=== PATIENT | female | born 2000 | race Caucasian/White ===

== ENCOUNTER 2021-10-19 15:39 | Inpatient (IN) ==
[2021-10-19 16:20] LABS: Basophils # (auto) 0.03 K/uL (0-0.2); Basophils % (auto) 0.3 %; Eosinophils # (auto) 0.05 K/uL (0-0.5); Eosinophils % (auto) 0.5 %; Hematocrit (blood only) 40.4 % (37-47); Hemoglobin 14.2 g/dL (12.0-16.0); Immature Granulocytes # (auto) 0.02 K/uL (0.00-0.02); Immature Granulocytes % (auto) 0.2 %; Lymphocytes # (auto) 2.47 K/uL (1.2-3.4); Lymphocytes % (auto) 24.7 %; Mean Corpuscular Hemoglobin 31.5 pg (25-34); Mean Corpuscular Hgb Conc 35.1 g/dL (32-36); Mean Corpuscular Volume 89.6 fL (80-100); Mean Platelet Volume 9.3 fL (7.4-10.4); Monocytes # (auto) 0.72 K/uL (0.11-0.59); Monocytes % (auto) 7.2 %; Neutrophils # (auto) 6.71 K/uL (1.4-6.5); Neutrophils % (auto) 67.1 %; Platelet Count 305 K/uL (130-400); RDW Coefficient of Variation 12.6 % (11.5-14.5); RDW Standard Deviation 40.9 fL (36.4-46.3); Red Blood Count 4.51 M/uL (4.2-5.4)
[2021-10-19 16:34] LABS: Appearance Urine Clear (Clear); Bacteria Urine Automated Negative (Negative); Bilirubin Urine Negative (Negative); Blood Urine Negative (Negative); Color Urine Yellow; Epithelial Cell Urine Auto >30 /lpf (0-5); Glucose Urine UA Negative (Negative); Ketones Urine Trace (Negative); Leukocyte Esterase Urine 1+ (Negative); Nitrite Urine Negative (Negative); Protein Urine Negative (Negative); RBC Urine Automated 0-4 /hpf (0-4); Specific Gravity Urine 1.017 (1.000-1.030); Urobilinogen Urine Negative (Negative); pH Urine 6.5 (4.5-7.5)
[2021-10-19 16:46] LABS: Acetaminophen < 3 ug/ml (10-30); Albumin Globulin Ratio 1.4 (0.9-2); Albumin Level 4.7 gm/dl (3.4-5.0); BUN Creatinine Ratio 15.1 (10-20); Bilirubin,Total 0.9 mg/dl (0.2-1.0); Calcium 9.5 mg/dl (8.5-10.1); Est GFR (African American) 137.4 ml/min; Est GFR (Non-African American) 118.6 ml/min; Globulin 3.3 gm/dl (2.5-4.0); Potassium 3.6 mmol/L (3.5-5.1); Salicylate < 3.0 mg/dl (3.0-30)
[2021-10-19 16:54] LABS: Pregnancy Test, Serum Negative (Negative)
[2021-10-19 17:09] LABS: Amphetamines+Metham, Urine Neg (Neg); Barbiturates, Urine Neg (Neg); Benzodiazepine, Urine Neg (Neg); Cocaine, Urine Neg (Neg); MDMA (Ecstacy), Urine Neg (Neg); Methadone, Urine Neg (Neg); Opiate, Urine Neg (Neg); Phencyclidine, Urine Neg (Neg)
--- NOTE | 2021-10-19 19:01 | Emergency Department Note ---
History of Present Illness General Chief complaint: Mental Health Evaluation Stated complaint: MHE, SUICIDAL THOUGHTS Time Seen by Provider: 10/19/21 16:25 History of Present Illness Provider complaint: Mental health evaluation Onset (ago): week(s) 1 21-year-old female presents emergency department for mental health evaluation. Patient reports that for the last week she has been feeling increasingly suicidal. Patient reports she has been under a lot of stress due to school and her classes not going well, family stress, and also that she has been in isolation for the last week due to recent COVID infection. Patient states she has been having thoughts of wanting to jump off buildings and has been googling which buildings with a tallest on campus. Patient reports history of anxiety and depression as well as history of suicidal ideation. Home Medications Medication Instructions Recorded Confirmed Type sertraline 100 mg tablet (Zoloft) 200 mg PO DAILY 10/19/21 10/19/21 History Allergies Allergy/AdvReac Type Severity Reaction Status Date / Time No Known Allergies Allergy Unverified 10/19/21 21:45 Past Med/Surg History Medical History Anxiety Depression with suicidal ideation No pertinent family history Surgical History No pertinent past surgical history Social History Smoking Status: Never smoker Preferred Language: Tajik Communication Ability: Effective Window Tinter Required: No Beliefs That Will Affect Care: None Feels Safe at Home: Yes Assistive Devices: None Review of Systems A total of 10 systems reviewed and were otherwise negative Physical Exam Vital Signs Vital Signs - 24 hr 10/19/21 15:43 10/19/21 17:00 10/19/21 18:32 Temperature 36.4 C L Temperature Source Temporal Artery Scan Pulse Rate 108 H Pulse Rate [Radial] 95 H 100 H Respiratory Rate 18 19 20 Blood Pressure 157/110 H Blood Pressure [Right Arm] 118/86 117/81 Blood Pressure Mean 125 Blood Pressure Mean [Right Arm] 96 93 Pulse Oximetry 97 98 98 Oxygen Delivery Method Room Air Room Air Sepsis Recent Fever Within 48 Hours No Sepsis New/Unexplained Change in Mental Status No Sepsis Action Taken by Nursing No Action Required Physical Exam GENERAL: She is oriented to person, place, and time. She appears well-developed and well-nourished. She does not appear distressed. HENT: Exam performed. -Head: Normocephalic and atraumatic. -Right Ear: External ear normal. No mastoid tenderness. -Left Ear: External ear normal. No mastoid tenderness. -Mouth/Throat: The oropharynx is clear and moist. No trismus in the jaw. No dental abscesses or uvula swelling. No oropharyngeal exudate or tonsillar abscesses. EYES: Conjunctivae and EOM are normal. Pupils are equal, round, and reactive to light. Right eye exhibits no discharge. Left eye exhibits no discharge. No scleral icterus. NECK: Normal range of motion. Neck supple. No JVD present. No spinous process tenderness present. No carotid bruit present. No rigidity. No tracheal deviation and normal range of motion present. No Brudzinski's sign and no Kernig's sign noted. CV: Normal rate, regular rhythm, normal heart sounds and intact distal pulses. There is no peripheral edema. Palpable radial pulses bue. PULM/CHEST: Effort normal and breath sounds normal. No respiratory distress. No stridor. She has no wheezes. She has no rales. -Chest Wall: She exhibits no tenderness. ABD: The abdomen is soft. Bowel sounds are normal. She has no distension. No mass is present. There is no tenderness. There is no rebound, no guarding, no Powers's sign and no tenderness at McBurney's point. Rovsig negative MUSC/SKEL: Normal range of motion. There is no peripheral edema, tenderness or deformity. LYMPH: No cervical adenopathy. NEURO: She is alert and oriented to person, place, and time. She has normal strength. No cranial nerve deficit or sensory deficit. Coordination and gait normal. GCS eye subscore is 4. GCS verbal subscore is 5. GCS motor subscore is 6. Cerebellar tests wnl. SKIN: Skin is warm and dry. She is not diaphoretic. PSYCH: She has a normal mood and affect. Behavior is normal. Judgment and thought content normal. Course Course 1625: The patient was evaluated in room A7. A complete history and physical exam was performed 1730: Patient medically cleared. Patient will be evaluate by psychiatric immigration case manager for inpatient psychiatric admission. Patient placed on observation at this time. 2100: Patient admitted to 3 S Medical Decision Making Laboratory Data Result diagrams: 10/19/21 16:07 10/19/21 16:07 Lab Results 10/19/21 10/19/21 10/19/21 Range/Units 16:04 16:04 16:07 WBC (4.8-10.8) K/uL RBC (4.2-5.4) M/uL Hgb (12.0-16.0) g/dL Hct (37-47) % MCV (80-100) fL MCH (25-34) pg MCHC (32-36) g/dL RDW Std Deviation (36.4-46.3) fL RDW Coeff of Manuel (11.5-14.5) % Plt Count (130-400) K/uL MPV (7.4-10.4) fL Immature Gran % (Auto) % Neut % (Auto) % Lymph % (Auto) % [place] % (Auto) % Eos % (Auto) % Baso % (Auto) % Neut # (Auto) (1.4-6.5) K/uL Lymph # (Auto) (1.2-3.4) K/uL [place] # (Auto) (0.11-0.59) K/uL Eos # (Auto) (0-0.5) K/uL Baso # (Auto) (0-0.2) K/uL Immature Gran # (Auto) (0.00-0.02) K/uL Sodium (136-145) mmol/L Potassium (3.5-5.1) mmol/L Chloride (98-107) mmol/L Carbon Dioxide (21-32) mmol/L Anion Gap (3-11) BUN (6-23) mg/dl Creatinine (0.6-1.2) mg/dl Est Cr Clr Drug Dosing ml/min Est GFR ( Amer) ml/min Est GFR (Non-Af Amer) ml/min BUN/Creatinine Ratio (10-20) Glucose (70-99(Fasting)) mg/dl Calcium (8.5-10.1) mg/dl Total Bilirubin (0.2-1.0) mg/dl AST (13-39) U/L ALT (7-52) U/L Alkaline Phosphatase (34-104) U/L Total Protein (6.0-8.3) gm/dl Albumin (3.4-5.0) gm/dl Globulin (2.5-4.0) gm/dl Albumin/Globulin Ratio (0.9-2) TSH (0.300-4.500) uIu/ml HCG, Qual Negative (Negative) Urine Color Yellow Urine Appearance Clear (Clear) Urine pH 6.5 (4.5-7.5) Ur Specific [place] 1.017 (1.000-1.030) Urine Protein Negative (Negative) Urine Glucose (UA) Negative (Negative) Urine Ketones Trace H (Negative) Urine Blood Negative (Negative) Urine Nitrite Negative (Negative) Urine Bilirubin Negative (Negative) Urine Urobilinogen Negative (Negative) Ur Leukocyte Esterase 1+ H (Negative) Urine WBC (Auto) 1-5 (0-5) /hpf Urine RBC (Auto) 0-4 (0-4) /hpf U Hyaline Cast (Auto) 1-5 (0-5) /lpf U Epithel Cells (Auto) >30 H (0-5) /lpf Urine Bacteria (Auto) Negative (Negative) Salicylates (3.0-30) mg/dl Urine Opiates Screen Neg (Neg) Ur Methadone, Qual Neg (Neg) Acetaminophen (10-30) ug/ml Urine Barbiturates Neg (Neg) Ur Phencyclidine (PCP) Neg (Neg) U Amphetamin/Meth Scrn Neg (Neg) MDMA (Ecstasy) Screen Neg (Neg) U Benzodiazepines Scrn Neg (Neg) Ur Cocaine Metabolite Neg (Neg) U Marijuana (THC) Screen Neg (Neg) Ethyl Alcohol mg/dL (<10.0) mg/dl SARS-CoV-2, RNA, NAAT (NEGATIVE) 10/19/21 10/19/21 10/19/21 Range/Units 16:07 16:07 16:07 WBC 10.00 (4.8-10.8) K/uL RBC 4.51 (4.2-5.4) M/uL Hgb 14.2 (12.0-16.0) g/dL Hct 40.4 (37-47) % MCV 89.6 (80-100) fL MCH 31.5 (25-34) pg MCHC 35.1 (32-36) g/dL RDW Std Deviation 40.9 (36.4-46.3) fL RDW Coeff of Manuel 12.6 (11.5-14.5) % Plt Count 305 (130-400) K/uL MPV 9.3 (7.4-10.4) fL Immature Gran % (Auto) 0.2 % Neut % (Auto) 67.1 % Lymph % (Auto) 24.7 % [place] % (Auto) 7.2 % Eos % (Auto) 0.5 % Baso % (Auto) 0.3 % Neut # (Auto) 6.71 H (1.4-6.5) K/uL Lymph # (Auto) 2.47 (1.2-3.4) K/uL [place] # (Auto) 0.72 H (0.11-0.59) K/uL Eos # (Auto) 0.05 (0-0.5) K/uL Baso # (Auto) 0.03 (0-0.2) K/uL Immature Gran # (Auto) 0.02 (0.00-0.02) K/uL Sodium 138 (136-145) mmol/L Potassium 3.6 (3.5-5.1) mmol/L Chloride 104 (98-107) mmol/L Carbon Dioxide 29 (21-32) mmol/L Anion Gap 5 (3-11) BUN 11 (6-23) mg/dl Creatinine 0.73 (0.6-1.2) mg/dl Est Cr Clr Drug Dosing 109.0 ml/min Est GFR ( Amer) 137.4 ml/min Est GFR (Non-Af Amer) 118.6 ml/min BUN/Creatinine Ratio 15.1 (10-20) Glucose 89 (70-99(Fasting)) mg/dl Calcium 9.5 (8.5-10.1) mg/dl Total Bilirubin 0.9 (0.2-1.0) mg/dl AST 18 (13-39) U/L ALT 14 (7-52) U/L Alkaline Phosphatase 55 (34-104) U/L Total Protein 8.0 (6.0-8.3) gm/dl Albumin 4.7 (3.4-5.0) gm/dl Globulin 3.3 (2.5-4.0) gm/dl Albumin/Globulin Ratio 1.4 (0.9-2) TSH 0.484 (0.300-4.500) uIu/ml HCG, Qual (Negative) Urine Color Urine Appearance (Clear) Urine pH (4.5-7.5) Ur Specific [place] (1.000-1.030) Urine Protein (Negative) Urine Glucose (UA) (Negative) Urine Ketones (Negative) Urine Blood (Negative) Urine Nitrite (Negative) Urine Bilirubin (Negative) Urine Urobilinogen (Negative) Ur Leukocyte Esterase (Negative) Urine WBC (Auto) (0-5) /hpf Urine RBC (Auto) (0-4) /hpf U Hyaline Cast (Auto) (0-5) /lpf U Epithel Cells (Auto) (0-5) /lpf Urine Bacteria (Auto) (Negative) Salicylates (3.0-30) mg/dl Urine Opiates Screen (Neg) Ur Methadone, Qual (Neg) Acetaminophen (10-30) ug/ml Urine Barbiturates (Neg) Ur Phencyclidine (PCP) (Neg) U Amphetamin/Meth Scrn (Neg) MDMA (Ecstasy) Screen (Neg) U Benzodiazepines Scrn (Neg) Ur Cocaine Metabolite (Neg) U Marijuana (THC) Screen (Neg) Ethyl Alcohol mg/dL (<10.0) mg/dl SARS-CoV-2, RNA, NAAT (NEGATIVE) 10/19/21 10/19/21 10/19/21 Range/Units 16:07 16:07 17:00 WBC (4.8-10.8) K/uL RBC (4.2-5.4) M/uL Hgb (12.0-16.0) g/dL Hct (37-47) % MCV (80-100) fL MCH (25-34) pg MCHC (32-36) g/dL RDW Std Deviation (36.4-46.3) fL RDW Coeff of Manuel (11.5-14.5) % Plt Count (130-400) K/uL MPV (7.4-10.4) fL Immature Gran % (Auto) % Neut % (Auto) % Lymph % (Auto) % [place] % (Auto) % Eos % (Auto) % Baso % (Auto) % Neut # (Auto) (1.4-6.5) K/uL Lymph # (Auto) (1.2-3.4) K/uL [place] # (Auto) (0.11-0.59) K/uL Eos # (Auto) (0-0.5) K/uL Baso # (Auto) (0-0.2) K/uL Immature Gran # (Auto) (0.00-0.02) K/uL Sodium (136-145) mmol/L Potassium (3.5-5.1) mmol/L Chloride (98-107) mmol/L Carbon Dioxide (21-32) mmol/L Anion Gap (3-11) BUN (6-23) mg/dl Creatinine (0.6-1.2) mg/dl Est Cr Clr Drug Dosing ml/min Est GFR ( Amer) ml/min Est GFR (Non-Af Amer) ml/min BUN/Creatinine Ratio (10-20) Glucose (70-99(Fasting)) mg/dl Calcium (8.5-10.1) mg/dl Total Bilirubin (0.2-1.0) mg/dl AST (13-39) U/L ALT (7-52) U/L Alkaline Phosphatase (34-104) U/L Total Protein (6.0-8.3) gm/dl Albumin (3.4-5.0) gm/dl Globulin (2.5-4.0) gm/dl Albumin/Globulin Ratio (0.9-2) TSH (0.300-4.500) uIu/ml HCG, Qual (Negative) Urine Color Urine Appearance (Clear) Urine pH (4.5-7.5) Ur Specific [place] (1.000-1.030) Urine Protein (Negative) Urine Glucose (UA) (Negative) Urine Ketones (Negative) Urine Blood (Negative) Urine Nitrite (Negative) Urine Bilirubin (Negative) Urine Urobilinogen (Negative) Ur Leukocyte Esterase (Negative) Urine WBC (Auto) (0-5) /hpf Urine RBC (Auto) (0-4) /hpf U Hyaline Cast (Auto) (0-5) /lpf U Epithel Cells (Auto) (0-5) /lpf Urine Bacteria (Auto) (Negative) Salicylates < 3.0 L (3.0-30) mg/dl Urine Opiates Screen (Neg) Ur Methadone, Qual (Neg) Acetaminophen < 3 L (10-30) ug/ml Urine Barbiturates (Neg) Ur Phencyclidine (PCP) (Neg) U Amphetamin/Meth Scrn (Neg) MDMA (Ecstasy) Screen (Neg) U Benzodiazepines Scrn (Neg) Ur Cocaine Metabolite (Neg) U Marijuana (THC) Screen (Neg) Ethyl Alcohol mg/dL < 10.0 (<10.0) mg/dl SARS-CoV-2, RNA, NAAT NEGATIVE (NEGATIVE) MDM Narrative Observation note Indication: Psych eval/placement Patient, with anxiety, depression,was first seen at 1625 hrs and the observation time began at 1730 hrs and was necessary in order to have psych evaluation completed . Upon re-evaluation, 3.5 hours of observation revealed that the patient should be admitted to inpatient psychiatry. Disposition date and time October 19, 2021 2100. Impression & Plan Depression with suicidal ideation Discharge Plan Visit Data Chief Complaint: Mental Health Evaluation Stated Complaint: MHE, SUICIDAL THOUGHTS ED Provider: Clinton Galdamez Discharge Problem: Depression with suicidal ideation Patient Disposition: Admitted As Inpatient Discharge Instructions Interventions: ED Discharge Assessment Last Done: 10/19/21 21:07
[2021-10-19] MEDS ORDERED: BISMUTH SUBSALICYLATE LIQD 236 ML PO PRN (21:12)
[2021-10-19] MEDS ORDERED: ALUMINUM/MAGNESIUM SUSP 30 ML UDC PO PRN (21:12)
[2021-10-19] MEDS ORDERED: SODIUM CHLORIDE 0.65% NA SOLN 45 ML (OCEAN) PRN (21:12)
[2021-10-19] MEDS ORDERED: hydrOXYzine HCl 25 MG TAB PO PRN ×2 (21:12)
[2021-10-19] MEDS ORDERED: ACETAMINOPHEN 325 MG TAB PO PRN (21:12)
[2021-10-19] MEDS ORDERED: MAGNESIUM HYDROXIDE SUSP 30 ML UDC PO PRN (21:12)
[2021-10-20] MEDS ORDERED: SODIUM CHLORIDE 0.65% NA SOLN 45 ML (OCEAN) PRN (01:47)
[2021-10-20] MEDS ORDERED: MAGNESIUM HYDROXIDE SUSP 30 ML UDC PO PRN (01:47)
[2021-10-20] MEDS ORDERED: hydrOXYzine HCl 25 MG TAB PO PRN ×2 (01:47)
[2021-10-20] MEDS ORDERED: ALUMINUM/MAGNESIUM SUSP 30 ML UDC PO PRN (01:47)
[2021-10-20] MEDS ORDERED: BISMUTH SUBSALICYLATE LIQD 236 ML PO PRN (01:47)
[2021-10-20] MEDS ORDERED: ACETAMINOPHEN 325 MG TAB PO PRN (01:47)
[2021-10-20] MEDS: [UNRECOGNIZED DRUG - OTHER] PO SCH (10:20)
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
[2021-10-21] MEDS: FLUoxetine HCL 20 MG CAP PO SCH (09:07)
[2021-10-21] MEDS: [UNRECOGNIZED DRUG - OTHER] PO SCH (09:08)
--- NOTE | 2021-10-21 11:52 | Psychiatric Progress Note ---
Date of Service October 21, 2021 Impression / Recommendations Impression 21 yo female with hx of anxiety/depression, initially reactive to family stress, with recurrent SI in the context of school stress and non-compliance with Zoloft. 10/21/21: denies SI but increased urge to SIB last pm. (1) Depression with suicidal ideation: (2) Anxiety: 10/21/21: Risks/benefits/alternatives reviewed re: antidepressants for the treatment of depression and/or anxiety on 10/20/21 and again today. Discussion included but was not limited to FDA warnings re: suicidality in adolescents and young adults. The patient agreed to continue trial of Prozac 20 mg daily. 10/20/21: The patient was admitted to the [facility] ([facility] inpatient mental health unit) on q15 min checks (behavioral with suicide precautions) for safety. The patient will participate in group, recreational, and milieu therapies and will be offered additional individual and family sessions as clinically appropriate. Inventory Assets Strengths: intelligent, self aware Needs: ongoing therapy, support for transition home (?deferred grades) Suicide Risk Level Suicide Risk Level: Moderate (q15 min suicide checks) Suicide Risk Level Comments: no intent or ability to carry out plan on unit, no prior attempts or hospitalizations, good impulse control Risk Factors Assessment : Yes Do You Have Access To A Gun?: No Health Problems: No Mental Health Diagnoses: Yes Substance Use Disorders: No Previous Attempt: No Family History of Suicide: No Previous Psychiatric Hospitalization: No Protective Factors Assessment : No Employed: No Stable Relationships: Yes Supportive Family: Yes Interval History Identifying Information VIVIANA MOHAMUD is a 21-year-old F, [employer] from [place], [place], was admitted on 10/19/21 21:12 on a 201 voluntary commitment for SI with plan. Chief Complaint "I had some urges to self-injure, I wasn't sure what to do" Review of Systems Sleep Information Total Hours of Sleep: 5.5 Sleep Comments: pt given vistaril per rn. pt on q-15 minute checks Meal Information Percent Meal Consumed - Breakfast: 100 Percent Meal Consumed - Lunch: 0 Percent Meal Consumed - Dinner: 75 Subjective Subjective Patient was seen & assessed and interval progress reviewed with nursing and social work. Discussed distractors, going to staff, frozen orange if thoughts to SIB recur. She was clear these thoughts were separate from SI. She was anxious due others being discharged. She is anxious to set up family meeting. Took Prozac this am and re-reviewed risks/benefits. Physical Exam Psychiatric Orientation: alert and oriented x 3 Apperance: appropriately dressed and appropriately groomed Eye Contact: good eye contact Motor Behavior: no abnormal motor movements Speech: normal rate/rhythm/volume of speech Affect: + depressed affect Mood: + depressed mood Thought Process: goal directed thought process Thought Content: reality based without delusions Suicidal Thoughts: denies suicidal intent; + reports suicidal thoughts and + reports suicidal plan ("was to jump") Homicidal Thoughts: denies homicidal thoughts Hallucinations: no auditory hallucinations and no visual hallucinations Cognition: attention grossly intact and language grossly intact Estimated Intelligence: consistent with education level Insight: + limited insight Judgement: + limited judgement Vital Signs (Past 24 Hours) Last Vital Signs Temp 36.9 C 10/21/21 06:45 Pulse 112 H 10/21/21 06:46 Resp 16 10/21/21 06:45 BP 98/65 L 10/21/21 06:46 Pulse Ox 98 10/19/21 22:23 Results & Data ([facility]) Laboratory Results Laboratory Results - last 24 hr 10/19/21 16:07 SARS-CoV-2 IgG Ab Index >150.00 H Current Inpatient Medications Current Inpatient Medications: Current Inpatient Medications Acetaminophen (Acetaminophen 325 Mg Tab) 650 mg PO Q4H PRN PRN Reason: Headache or Minor Fever Stop: 11/18/21 21:11 Al Hydrox/Mg Hydrox/Simethicone (Aluminum/Magnesium Susp 30 Ml Udc) 30 ml PO Q4H PRN PRN Reason: GI Upset Stop: 11/18/21 21:11 Bismuth Subsalicylate (Bismuth Subsalicylate Liqd 236 Ml) 15 ml PO PRN PRN PRN Reason: Loose Stool Stop: 11/18/21 21:11 Fluoxetine HCl (Fluoxetine Hcl 20 Mg Cap) 20 mg PO QAM ISMAEL Stop: 11/20/21 08:59 Last Admin: 10/21/21 09:07 Dose: 20 mg Documented by: Hydroxyzine HCl (Hydroxyzine Hcl 25 Mg Tab) 50 mg PO HSZ PRN PRN Reason: Insomnia Stop: 11/18/21 21:11 Last Admin: 04/27/22 23:27 Dose: 50 mg Documented by: Hydroxyzine HCl (Hydroxyzine Hcl 25 Mg Tab) 25 mg PO Q4H PRN PRN Reason: Anxiety Stop: 11/18/21 21:11 Magnesium Hydroxide (Magnesium Hydroxide Susp 30 Ml Udc) 30 ml PO DAILY PRN PRN Reason: Constipation Stop: 11/18/21 21:11 Miscellaneous (Tri Femynor - Patient's Own Oral Contraceptive) 1 ea PO QAM ISMAEL Stop: 11/19/21 08:59 Last Admin: 10/21/21 09:08 Dose: 1 ea Documented by: Sodium Chloride (Sodium Chloride 0.65% Na Soln 45 Ml ([place])) 1 - 2 sprays NA PRN PRN PRN Reason: Nasal Dryness/Congestion Stop: 11/18/21 21:11 Mental Health & Subst Abuse Tx Therapist Name of Therapist: Jovana Royal Core Dropper Name of Core Dropper: None
[2021-10-22] MEDS: FLUoxetine HCL 20 MG CAP PO SCH (08:45)
[2021-10-22] MEDS: [UNRECOGNIZED DRUG - OTHER] PO SCH (08:45)
--- NOTE | 2021-10-22 13:07 | Psychiatric Progress Note ---
Date of Service October 22, 2021 Impression / Recommendations Impression 21 yo female with hx of anxiety/depression, initially reactive to family stress, with recurrent SI in the context of school stress and non-compliance with Zoloft. 10/22/21: decreased urge to self injure, anxious and unable to safety plan outside of hospital until school issues are addressed. (1) Depression with suicidal ideation: (2) Anxiety: 10/22/21: continue Prozac trial. 10/21/21: Risks/benefits/alternatives reviewed re: antidepressants for the treatment of depression and/or anxiety on 10/20/21 and again today. Discussion included but was not limited to FDA warnings re: suicidality in adolescents and young adults. The patient agreed to continue trial of Prozac 20 mg daily. 10/20/21: The patient was admitted to the [facility] ([facility] mental health unit) on q15 min checks (behavioral with suicide precautions) for safety. The patient will participate in group, recreational, and milieu therapies and will be offered additional individual and family sessions as clinically appropriate. Inventory Assets Strengths: intelligent, self aware Needs: ongoing therapy, support for transition home (?deferred grades) Suicide Risk Level Suicide Risk Level: Moderate (q15 min suicide checks) Suicide Risk Level Comments: no intent or ability to carry out plan on unit, no prior attempts or hospitalizations, good impulse control Risk Factors Assessment : Yes Do You Have Access To A Gun?: No Health Problems: No Mental Health Diagnoses: Yes Substance Use Disorders: No Previous Attempt: No Family History of Suicide: No Previous Psychiatric Hospitalization: No Protective Factors Assessment : No Employed: No Stable Relationships: Yes Supportive Family: Yes Interval History Identifying Information VIVIANA MOHAMUD is a 21-year-old F, [employer] from [place], [place], was admitted on 10/19/21 21:12 on a 201 voluntary commitment for SI with plan. Chief Complaint "I'm hanging in. Med seems fine so far." Review of Systems Sleep Information Total Hours of Sleep: 6 Sleep Comments: pt on q-15 minute checks Meal Information Percent Meal Consumed - Breakfast: 75 Percent Meal Consumed - Lunch: 100 Percent Meal Consumed - Dinner: 100 Subjective Subjective Patient was seen & assessed and interval progress reviewed with treatment team. Somewhat anxious re: her meeting with student care and advocacy re: deferment vs. retroactive withdrawal. Tolerating prozac. States that any urges to self- injure last pm were less frequent and less intense. Physical Exam Psychiatric Orientation: alert and oriented x 3 Apperance: appropriately dressed and appropriately groomed Eye Contact: good eye contact Motor Behavior: no abnormal motor movements Speech: normal rate/rhythm/volume of speech Affect: + depressed affect Mood: + depressed mood Thought Process: goal directed thought process Thought Content: reality based without delusions Suicidal Thoughts: denies suicidal thoughts, denies suicidal plan and denies suicidal intent Homicidal Thoughts: denies homicidal thoughts Hallucinations: no auditory hallucinations and no visual hallucinations Cognition: attention grossly intact and language grossly intact Estimated Intelligence: consistent with education level Insight: + limited insight Judgement: + limited judgement Vital Signs (Past 24 Hours) Last Vital Signs Temp 36.8 C 10/22/21 06:35 Pulse 102 H 10/22/21 06:36 Resp 16 10/22/21 06:35 BP 95/62 L 10/22/21 06:36 Pulse Ox 98 10/19/21 22:23 Results & Data ([facility]) Current Inpatient Medications Current Inpatient Medications: Current Inpatient Medications Acetaminophen (Acetaminophen 325 Mg Tab) 650 mg PO Q4H PRN PRN Reason: Headache or Minor Fever Stop: 11/18/21 21:11 Al Hydrox/Mg Hydrox/Simethicone (Aluminum/Magnesium Susp 30 Ml Udc) 30 ml PO Q4H PRN PRN Reason: GI Upset Stop: 11/18/21 21:11 Bismuth Subsalicylate (Bismuth Subsalicylate Liqd 236 Ml) 15 ml PO PRN PRN PRN Reason: Loose Stool Stop: 11/18/21 21:11 Fluoxetine HCl (Fluoxetine Hcl 20 Mg Cap) 20 mg PO QAM ISMAEL Stop: 11/20/21 08:59 Last Admin: 10/22/21 08:45 Dose: 20 mg Documented by: Hydroxyzine HCl (Hydroxyzine Hcl 25 Mg Tab) 50 mg PO HSZ PRN PRN Reason: Insomnia Stop: 11/18/21 21:11 Last Admin: 10/20/21 23:27 Dose: 50 mg Documented by: Hydroxyzine HCl (Hydroxyzine Hcl 25 Mg Tab) 25 mg PO Q4H PRN PRN Reason: Anxiety Stop: 11/18/21 21:11 Magnesium Hydroxide (Magnesium Hydroxide Susp 30 Ml Udc) 30 ml PO DAILY PRN PRN Reason: Constipation Stop: 11/18/21 21:11 Miscellaneous (Tri Femynor - Patient's Own Oral Contraceptive) 1 ea PO QAM ISMAEL Stop: 11/19/21 08:59 Last Admin: 10/22/21 08:45 Dose: 1 ea Documented by: Sodium Chloride (Sodium Chloride 0.65% Na Soln 45 Ml ([place])) 1 - 2 sprays NA PRN PRN PRN Reason: Nasal Dryness/Congestion Stop: 11/18/21 21:11 Mental Health & Subst Abuse Tx Psychiatrist Name of Psychiatrist: [facility]'s Time of Appointment with Psychiatrist: Call to complete intake/schedule initial appointment. Psychiatric Appointment Comment: [phone], [place] [id number] Therapist Name of Therapist: [facility] - Jovana Royal Therapist's Date of Therapist Appointment: 10/28/21 Time of Therapist Appointment: 3:00 PM Therapy Appointment Comment: in person - contact her if you prefer telehealth Assistant Women'S Soccer Coach Name of Assistant Women'S Soccer Coach: None Post Discharge Appointments Primary Care Physician Name Of Family Doctor: [facility] - Dr. Mcduffie Primary [facility] Date of Appointment with PCP: 11/03/21 Time of Appointment with PCP: 7:45 AM Provider Appointment Comment: [address], [place] [id number]
[2021-10-23] MEDS: FLUoxetine HCL 20 MG CAP PO SCH (09:35)
[2021-10-23] MEDS: [UNRECOGNIZED DRUG - OTHER] PO SCH (09:35)
--- NOTE | 2021-10-23 16:43 | Psychiatric Progress Note ---
Date of Service October 23, 2021 Impression / Recommendations Impression 21 yo woman with hx of anxiety and depression, initially reactive to family stress, with recurrent SI in the context of school stress and recently stopping Zoloft. Diagnostically consistent with MDD with anxious distress. The patient is deemed unstable and requires psychiatric hospitalization for diagnostic clarification, safety and stabilization, medication management and development of further coping skills. 10/23/21: improving mood, denies SI and no urges for self-harm, productive family meeting, needs to complete safety plan. Continues to tolerate fluoxetine initiation. Motivational interviewing regarding exercise incorporation to help with mood and discussed strategies to help mitigate future self-harm urges. (1) Depression with suicidal ideation: (2) Anxiety: 10/23/21: Continue fluoxetine 20mg qd. Needs to complete safety plan. 10/22/21: continue Prozac trial. 10/21/21: Risks/benefits/alternatives reviewed re: antidepressants for the treatment of depression and/or anxiety on 10/20/21 and again today. Discussion included but was not limited to FDA warnings re: suicidality in adolescents and young adults. The patient agreed to continue trial of Prozac 20 mg daily. 10/20/21: The patient was admitted to the [facility] ([facility] mental health unit) on q15 min checks (behavioral with suicide precautions) for safety. The patient will participate in group, recreational, and milieu therapies and will be offered additional individual and family sessions as clinically appropriate. Inventory Assets Strengths: intelligent, self aware Needs: ongoing therapy, support for transition home (?deferred grades) Suicide Risk Level Suicide Risk Level: Moderate (q15 min suicide checks) Suicide Risk Level Comments: no current SI, decreasing thoughts of self-harm and none today, no prior attempts or hospitalizations, good impulse control, able to safety contract, mood improving Risk Factors Assessment : Yes Do You Have Access To A Gun?: No Health Problems: No Mental Health Diagnoses: Yes Substance Use Disorders: No Previous Attempt: No Family History of Suicide: No Previous Psychiatric Hospitalization: No Protective Factors Assessment : No Employed: No Stable Relationships: Yes Supportive Family: Yes Interval History Identifying Information VIVIANA MOHAMUD is a 21-year-old F, [employer] from [place], [place], was admitted on 10/19/21 21:12 on a 201 voluntary commitment for SI with plan. Chief Complaint "I'm feeling much better after the family meeting, glad I have time to process everything". Review of Systems Sleep Information Total Hours of Sleep: 7 Sleep Comments: pt on q-15 minute checks Meal Information Percent Meal Consumed - Breakfast: 100 Percent Meal Consumed - Lunch: 100 Percent Meal Consumed - Dinner: 75 Subjective Subjective Patient was seen & assessed and interval progress reviewed with treatment team nursing and social work. had family meeting with her parents earlier today. Reports relief after this, feels well supported by her parents in her academic decision making. No side effects from fluoxetine. Found dose of Vistaril helpful yesterday for anxiety. Reviewed strategies to help cope with potential future mood symptoms. She denies SI and no urges for self-harm. Physical Exam Psychiatric Orientation: alert and oriented x 3 Apperance: appropriately dressed and appropriately groomed Eye Contact: good eye contact Motor Behavior: no abnormal motor movements Speech: normal rate/rhythm/volume of speech Affect: + constricted affect Mood: + anxious mood Thought Process: goal directed thought process Thought Content: reality based without delusions Suicidal Thoughts: denies suicidal thoughts Homicidal Thoughts: denies homicidal thoughts Hallucinations: no auditory hallucinations and no visual hallucinations Cognition: attention grossly intact and language grossly intact Estimated Intelligence: consistent with education level Insight: + fair insight Judgement: + fair judgement Vital Signs (Past 24 Hours) Last Vital Signs Temp 36.9 C 10/23/21 06:44 Pulse 97 H 10/23/21 06:45 Resp 16 10/23/21 06:44 BP 110/70 10/23/21 06:45 Pulse Ox 98 10/19/21 22:23 Results & Data ([facility]) Current Inpatient Medications Current Inpatient Medications: Current Inpatient Medications Acetaminophen (Acetaminophen 325 Mg Tab) 650 mg PO Q4H PRN PRN Reason: Headache or Minor Fever Stop: 11/18/21 21:11 Al Hydrox/Mg Hydrox/Simethicone (Aluminum/Magnesium Susp 30 Ml Udc) 30 ml PO Q4H PRN PRN Reason: GI Upset Stop: 11/18/21 21:11 Bismuth Subsalicylate (Bismuth Subsalicylate Liqd 236 Ml) 15 ml PO PRN PRN PRN Reason: Loose Stool Stop: 11/18/21 21:11 Fluoxetine HCl (Fluoxetine Hcl 20 Mg Cap) 20 mg PO QAM ISMAEL Stop: 11/20/21 08:59 Last Admin: 10/23/21 09:35 Dose: 20 mg Documented by: Hydroxyzine HCl (Hydroxyzine Hcl 25 Mg Tab) 50 mg PO HSZ PRN PRN Reason: Insomnia Stop: 11/18/21 21:11 Last Admin: 10/20/21 23:27 Dose: 50 mg Documented by: Hydroxyzine HCl (Hydroxyzine Hcl 25 Mg Tab) 25 mg PO Q4H PRN PRN Reason: Anxiety Stop: 11/18/21 21:11 Last Admin: 10/22/21 20:22 Dose: 25 mg Documented by: Magnesium Hydroxide (Magnesium Hydroxide Susp 30 Ml Udc) 30 ml PO DAILY PRN PRN Reason: Constipation Stop: 11/18/21 21:11 Miscellaneous (Tri Femynor - Patient's Own Oral Contraceptive) 1 ea PO QAM ISMAEL Stop: 11/19/21 08:59 Last Admin: 10/23/21 09:35 Dose: 1 ea Documented by: Sodium Chloride (Sodium Chloride 0.65% Na Soln 45 Ml (Celoron)) 1 - 2 sprays NA PRN PRN PRN Reason: Nasal Dryness/Congestion Stop: 11/18/21 21:11 Mental Health & Subst Abuse Tx Psychiatrist Name of Psychiatrist: [facility] - Dr. Erickson Douglas Psychiatrist's Date of Appointment with Psychiatrist: 11/15/21 Time of Appointment with Psychiatrist: 9:45 AM - call to confirm / for directions to office Psychiatric Appointment Comment: [place] [id number] Therapist Name of Therapist: [facility] - Jovana Royal Therapist's Date of Therapist Appointment: 10/28/21 Time of Therapist Appointment: 3:00 PM Therapy Appointment Comment: in person - contact her if you prefer telehealth Financial Quantitative Analyst Name of Financial Quantitative Analyst: None Post Discharge Appointments Primary Care Physician Name Of Family Doctor: [facility] - Dr. Mcduffie Primary Care Date of Appointment with PCP: 11/03/21 Time of Appointment with PCP: 7:45 AM Provider Appointment Comment: [address] [place] [address]
[2021-10-24] MEDS: FLUoxetine HCL 20 MG CAP PO SCH (08:59)
[2021-10-24] MEDS: [UNRECOGNIZED DRUG - OTHER] PO SCH (09:00)
--- NOTE | 2021-10-24 09:03 | Discharge Summary ---
Date of Service October 24, 2021 History of Present Illness Per admission H&P by Dr. Dumont: Radha states that she has a history of anxiety and depression since her teens, at least in part related to her father's alcoholism. He is not in recovery and they have been working on their relationship over the past 3 years. She started therapy and medication in [facility] but has been rather inconsistent with Zoloft. The dose was increased following some suicidal ideation last summer as "seemed better" but now mood has been worsening in the context of stress of classes and thinking about her future. The suicidal thoughts have been "on and off" for last 1-2 weeks, more persistent since 10/17/21 and on 10/18/21 she had a rather large panic attack over a project. A friend convinced her to go the emergency department after she called the suicide hotline. She attempted to text an LGBTQ specific line but reports not getting a timely response. She reports some difficulty falling and staying asleep due to stress. Appetite is OK but concentration toward classes is "hard". She admits to stopping her Zol oft around spring. Took 25 mg yesterday as knew that the full 175 mg dose of Zoloft would cause her to develop stomach upset. Physical Exam Vital Signs (Past 24 Hours) Last Vital Signs Temp 36.9 C 10/24/21 06:40 Pulse 97 H 10/24/21 06:42 Resp 16 10/24/21 06:40 BP 115/73 10/24/21 06:42 Pulse Ox 98 10/19/21 22:23 See admission H&P and DOD summary. Principal Diagnosis Major Depressive Disorder with anxious distress Psychiatric Data See daily stay summary. In short, patient was engaged with the social/therapeutic milieu of the unit, safety was maintained and the patient was cooperative with care. Medication changes included discontinuation of sertraline and initiation of fluoxetine and they tolerated this well. She also used Vistaril 25mg qd prn with good benefit for anxiety. A family session was held and safety plan was completed prior to discharge. In the days leading up to discharge she consistently denied any SI. She actively and insightfully participated in safety planning and in discussions about ways to seek support and recognizing warning signs and utilizing coping skills. Reviewed mobile apps that could be used for additional ways to have their safety plan and contacts easily available should thoughts of SI re-emerge in the future. Reviewed importance of seeking emergency care should SI intensify, worsen or should they feel unsafe in the future which they agree to do. On the day of discharge she stated her mood was "good" and remained future- oriented including spending time with her pet dog and cat, seeing his family and engaging in aftercare appointments for psychiatry, therapy and [employer] student care and advocacy. Day of Discharge Assessment Today the patient voices readiness for discharge. They note improvement in mood and anxiety. They deny thoughts of harm to self or others. Thoughts are organized and they are clinically improved from admission. There is no evidence of psychosis. They improved in the hospital with support and medication adjustments. They agree to take medications as prescribed and keep follow-up appointments. At the time of the discharge they are deemed to be stable and appropriate for outpatient level of care. They are not deemed to be at imminent risk of harm to self or others. They are aware of emergency and crisis services. Knows to call 911 or go to nearest emergency care center if in a crisis which cannot be handled as an outpatient. Transition of Care Transition Of Care Record: was reviewed with the patient Advance Directives Advance Directives Information Provided: Yes Advance Directives: No Mental Health Advance Directive: No Advance Directives on File: No Living Will: No Power of Top Inventory Control Executive: No Advance Directives Reason:: Declines as Mental Health Visit. Suicide Risk Level Suicide Risk Level: Low (q15 min observation checks) Suicide Risk Level Comments: Acute risk is low given improvement in mood and denial of SI, improvement in sleep, and hopefulness. Chronic risk is low given few non-modifiable risk factors including no prior attempt and many protective factors including strong social support. Counseled on ways to reduce acute and chronic risk including engaging with outpatient providers, using safety plan if needed, utilizing supports, taking medication, and using coping skills. Modifiable risk factors of SI and depression were addressed during hospitalization through development of new coping skills, family meeting, safety planning, and medication adjustments. Risk Factors Assessment : Yes Do You Have Access To A Gun?: No Health Problems: No Mental Health Diagnoses: Yes Substance Use Disorders: No Previous Attempt: No Family History of Suicide: No Previous Psychiatric Hospitalization: No Hopelessness: No Protective Factors Assessment : No Employed: No Stable Relationships: Yes Supportive Family: Yes Discharge Data Lab Results 10/19/21 10/19/21 10/19/21 16:04 16:04 16:07 WBC RBC Hgb Hct MCV MCH MCHC RDW Std Deviation RDW Coeff of Manuel Plt Count MPV Immature Gran % (Auto) Neut % (Auto) Lymph % (Auto) [place]otin % (Auto) Eos % (Auto) Baso % (Auto) Neut # (Auto) Lymph # (Auto) [place]otin # (Auto) Eos # (Auto) Baso # (Auto) Immature Gran # (Auto) Sodium Potassium Chloride Carbon Dioxide Anion Gap BUN Creatinine Est Cr Clr Drug Dosing Est GFR ( Amer) Est GFR (Non-Af Amer) BUN/Creatinine Ratio Glucose Calcium Total Bilirubin AST ALT Alkaline Phosphatase Total Protein Albumin Globulin Albumin/Globulin Ratio TSH HCG, Qual Negative Urine Color Yellow Urine Appearance Clear Urine pH 6.5 Ur Specific Clyde 1.017 Urine Protein Negative Urine Glucose (UA) Negative Urine Ketones Trace H Urine Blood Negative Urine Nitrite Negative Urine Bilirubin Negative Urine Urobilinogen Negative Ur Leukocyte Esterase 1+ H Urine WBC (Auto) 1-5 Urine RBC (Auto) 0-4 U Hyaline Cast (Auto) 1-5 U Epithel Cells (Auto) >30 H Urine Bacteria (Auto) Negative Salicylates Urine Opiates Screen Neg Ur Methadone, Qual Neg Acetaminophen Urine Barbiturates Neg Ur Phencyclidine (PCP) Neg U Amphetamin/Meth Scrn Neg MDMA (Ecstasy) Screen Neg U Benzodiazepines Scrn Neg Ur Cocaine Metabolite Neg U Marijuana (THC) Screen Neg Ethyl Alcohol mg/dL SARS-CoV-2, RNA, NAAT SARS-CoV-2 IgG Ab Index 10/19/21 10/19/21 10/19/21 16:07 16:07 16:07 WBC 10.00 RBC 4.51 Hgb 14.2 Hct 40.4 MCV 89.6 MCH 31.5 MCHC 35.1 RDW Std Deviation 40.9 RDW Coeff of Manuel 12.6 Plt Count 305 MPV 9.3 Immature Gran % (Auto) 0.2 Neut % (Auto) 67.1 Lymph % (Auto) 24.7 Asotin % (Auto) 7.2 Eos % (Auto) 0.5 Baso % (Auto) 0.3 Neut # (Auto) 6.71 H Lymph # (Auto) 2.47 Asotin # (Auto) 0.72 H Eos # (Auto) 0.05 Baso # (Auto) 0.03 Immature Gran # (Auto) 0.02 Sodium 138 Potassium 3.6 Chloride 104 Carbon Dioxide 29 Anion Gap 5 BUN 11 Creatinine 0.73 Est Cr Clr Drug Dosing 109.0 Est GFR ( Amer) 137.4 Est GFR (Non-Af Amer) 118.6 BUN/Creatinine Ratio 15.1 Glucose 89 Calcium 9.5 Total Bilirubin 0.9 AST 18 ALT 14 Alkaline Phosphatase 55 Total Protein 8.0 Albumin 4.7 Globulin 3.3 Albumin/Globulin Ratio 1.4 TSH 0.484 HCG, Qual Urine Color Urine Appearance Urine pH Ur Specific Clyde Urine Protein Urine Glucose (UA) Urine Ketones Urine Blood Urine Nitrite Urine Bilirubin Urine Urobilinogen Ur Leukocyte Esterase Urine WBC (Auto) Urine RBC (Auto) U Hyaline Cast (Auto) U Epithel Cells (Auto) Urine Bacteria (Auto) Salicylates Urine Opiates Screen Ur Methadone, Qual Acetaminophen Urine Barbiturates Ur Phencyclidine (PCP) U Amphetamin/Meth Scrn MDMA (Ecstasy) Screen U Benzodiazepines Scrn Ur Cocaine Metabolite U Marijuana (THC) Screen Ethyl Alcohol mg/dL SARS-CoV-2, RNA, NAAT SARS-CoV-2 IgG Ab Index 10/19/21 10/19/21 10/19/21 16:07 16:07 16:07 WBC RBC Hgb Hct MCV MCH MCHC RDW Std Deviation RDW Coeff of Manuel Plt Count MPV Immature Gran % (Auto) Neut % (Auto) Lymph % (Auto) Asotin % (Auto) Eos % (Auto) Baso % (Auto) Neut # (Auto) Lymph # (Auto) Asotin # (Auto) Eos # (Auto) Baso # (Auto) Immature Gran # (Auto) Sodium Potassium Chloride Carbon Dioxide Anion Gap BUN Creatinine Est Cr Clr Drug Dosing Est GFR ( Amer) Est GFR (Non-Af Amer) BUN/Creatinine Ratio Glucose Calcium Total Bilirubin AST ALT Alkaline Phosphatase Total Protein Albumin Globulin Albumin/Globulin Ratio TSH HCG, Qual Urine Color Urine Appearance Urine pH Ur Specific Clyde Urine Protein Urine Glucose (UA) Urine Ketones Urine Blood Urine Nitrite Urine Bilirubin Urine Urobilinogen Ur Leukocyte Esterase Urine WBC (Auto) Urine RBC (Auto) U Hyaline Cast (Auto) U Epithel Cells (Auto) Urine Bacteria (Auto) Salicylates < 3.0 L Urine Opiates Screen Ur Methadone, Qual Acetaminophen < 3 L Urine Barbiturates Ur Phencyclidine (PCP) U Amphetamin/Meth Scrn MDMA (Ecstasy) Screen U Benzodiazepines Scrn Ur Cocaine Metabolite U Marijuana (THC) Screen Ethyl Alcohol mg/dL < 10.0 SARS-CoV-2, RNA, NAAT SARS-CoV-2 IgG Ab Index >150.00 H 10/19/21 17:00 WBC RBC Hgb Hct MCV MCH MCHC RDW Std Deviation RDW Coeff of Manuel Plt Count MPV Immature Gran % (Auto) Neut % (Auto) Lymph % (Auto) Asotin % (Auto) Eos % (Auto) Baso % (Auto) Neut # (Auto) Lymph # (Auto) [place]otin # (Auto) Eos # (Auto) Baso # (Auto) Immature Gran # (Auto) Sodium Potassium Chloride Carbon Dioxide Anion Gap BUN Creatinine Est Cr Clr Drug Dosing Est GFR ( Amer) Est GFR (Non-Af Amer) BUN/Creatinine Ratio Glucose Calcium Total Bilirubin AST ALT Alkaline Phosphatase Total Protein Albumin Globulin Albumin/Globulin Ratio TSH HCG, Qual Urine Color Urine Appearance Urine pH Ur Specific Clyde Urine Protein Urine Glucose (UA) Urine Ketones Urine Blood Urine Nitrite Urine Bilirubin Urine Urobilinogen Ur Leukocyte Esterase Urine WBC (Auto) Urine RBC (Auto) U Hyaline Cast (Auto) U Epithel Cells (Auto) Urine Bacteria (Auto) Salicylates Urine Opiates Screen Ur Methadone, Qual Acetaminophen Urine Barbiturates Ur Phencyclidine (PCP) U Amphetamin/Meth Scrn MDMA (Ecstasy) Screen U Benzodiazepines Scrn Ur Cocaine Metabolite U Marijuana (THC) Screen Ethyl Alcohol mg/dL SARS-CoV-2, RNA, NAAT NEGATIVE SARS-CoV-2 IgG Ab Index Hospital Course (1) Depression with suicidal ideation: (2) Anxiety: (3) MDD (major depressive disorder), recurrent episode, moderate: 10/24/21: Completed and reviewed safety plan. Continue fluoxetine and Vistaril 25mg daily prn for anxiety/insomnia. 10/23/21: Continue fluoxetine 20mg qd. 10/22/21: continue Prozac trial. 10/21/21: Risks/benefits/alternatives reviewed re: antidepressants for the treatment of depression and/or anxiety on 10/20/21 and again today. Discussion included but was not limited to FDA warnings re: suicidality in adolescents and young adults. The patient agreed to continue trial of Prozac 20 mg daily. 10/20/21: The patient was admitted to the [facility] ([facility] inpatient mental health unit) on q15 min checks (behavioral with suicide precautions) for safety. The patient will participate in group, recreational, and milieu therapies and will be offered additional individual and family sessions as clinically appropriate. Mental Health & Subst Abuse Tx Psychiatrist Name of Psychiatrist: [facility] - Dr. Erickson Douglas Psychiatrist's Date of Appointment with Psychiatrist: 11/15/21 Time of Appointment with Psychiatrist: 9:45 AM - call to confirm / for directions to office Psychiatric Appointment Comment: [place] [id number] Therapist Name of Therapist: [facility] - Jovana Royal Therapist's Date of Therapist Appointment: 10/28/21 Time of Therapist Appointment: 3:00 PM Therapy Appointment Comment: in person - contact her if you prefer telehealth Slurry Mixer Name of Slurry Mixer: . Post Discharge Appointments Primary Care Physician Name Of Family Doctor: [facility] - Dr. Mcduffie Primary Care Date of Appointment with PCP: 11/03/21 Time of Appointment with PCP: 7:45 AM Provider Appointment Comment: [address] [place] [address] Other #1: Name of Aftercare Appointment: Student Care and Advocacy - Isabel Campos Phone Number of Aftercare Appointment: [phone] Date of Aftercare Appointment: 10/25/21 Time of Aftercare Appointment: 3:00 PM Aftercare Appointment Comment: [email or web address] Contact Information Discharge Discharge Address: [address] [place] [address] Discharge Plan Discharge Items Patient Disposition: Home - Self-Care Reason For Visit: MDD Discharge Diagnosis: Major Depressive Disorder, recurrent, moderate with anxious distress Activity: Resume your previous activity Non-emergency contact: Primary Care Provider, Psychiatrist and Therapist Call non-emergency contact if: you have any medication questions and your symptoms worsen Follow-up/Referrals: Ramos Mcduffie [Primary Care Provider] - Diet: Regular Addtl Attending Provider Instructions: Optional mobile apps: -Suicide safety plan -Virtual Hope Box SPECIAL CARE INSTRUCTIONS: 1. Follow through with your scheduled aftercare appointments. If unable to keep an appointment, please call to reschedule. 2. Take your medication only as prescribed. Medication should not be changed or stopped without the approval of your doctor. In the event of worsening symptoms or concerns about side effects, contact your doctor immediately. 3. Utilize new healthy coping skills, anger management skills, and stress management skills learned during your hospitalization. Journal feelings and process them with a support person. Identify stressors or situations that may result in relapse, deterioration or inappropriate behaviors and develop a plan to deal with those issues. 4. If your coping skills are ineffective and you are in crisis, contact your outpatient providers for direction. If unable to reach your providers, please call the [facility] CRISIS LINE AT , go to the [facility] walk-in center at [address], [place], or go to the closest Emergency Room. 5. Avoid alcohol and un-prescribed drugs. 6. You have been provided with the Mental Health Advance Directives Pamphlet for your review. 7. Your condition is stable for discharge to outpatient level of care, but recovery is an ongoing process. Ifthoughts to harm yourself or others return, follow the safety plan developed during your stay. Planning for a safe return home includes securing weapons. Our treatment team recommends weaponsbe removed from the home until your outpatient provider reassesses your progress. In rare cases where the items themselvescannot be removed, guns and ammunitionshould be secured separatelyand keys stored by a reliable personoutside of the home. If you were admitted on an involuntary commitment, the police or other legal authorities may be involved in this process. AFTERCARE APPOINTMENTS: * Please call your insurance company prior to your scheduled appointment to confirm your aftercare providers are covered. Take your insurance information to your appointments. WHO TO CALL AND WHEN: Medical Emergencies: For questions or emergencies related to your hospital stay, please contact the Inpatient Behavioral Health Unit at [phone]. A central service tech is on-call 16/01 for the Behavioral Health Unit for emergencies At any time you feel your situation is an emergency, you may also call 911 immediately. Pending Studies at Discharge: No Stand-Alone Forms: My [facility] Medications and DC Order Prescriptions: New hydroxyzine HCl 25 mg Tablet 25 mg PO DAILY PRN (Reason: anxiety/insomnia) 30 Days Qty: 30 RF: 0 fluoxetine 20 mg Capsule 20 mg PO QAM 30 Days Qty: 30 RF: 0 Discontinued sertraline [Zoloft] 100 mg Tablet 200 mg PO DAILY RF: 0 Discharge Orders: Discharge Order (Routine); Ordered 10/24/21 Ordered By: Yoko Alvarez/Other Patient Handouts: Journaling for Mental Health, Depression: Tips to Help Yourself Admission Data Admit Date/Time: 10/19/21 21:12 Attending Provider: Renee Dumont Admit Provider: Renee Dumont Primary Care Provider: Ramos Mcduffie Other Interventions: PSY Interdisciplinary Discharge Planning Last Done: 10/24/21 09:19 Coding Level of Care Code 24944 D/C day mgmt > 30 min Diagnoses Depression with suicidal ideation F32.A; R45.851 Anxiety F41.9 MDD (major depressive disorder), recurrent episode, moderate F33.1 Time Spent (min) 35
[2021-10-24] MEDS ORDERED: DESTROY THIS MEDICATION ONE (10:46)
== END 2021-10-24 10:30 | disposition home or self-care (01) | DRG 885 ==
LOC: ED 15:39 → 3S 21:12